=== PATIENT | male | born 1940 | race Caucasian/White ===

== ENCOUNTER 2025-03-25 14:26 | Emergency (ER) | payer MEDICARE, SELFPAY ==
--- NOTE | ~2025-03-25 | XR_ITS ---
EXAMINATION: XR shoulder RT min 2V DATE: 03/25/2025 16:37 INDICATION: Right upper arm injury post fall TECHNIQUE: AP internally and externally rotated, AP oblique externally rotated and transscapular Y views of the right shoulder were obtained. COMPARISON: None FINDINGS: Oblique fracture across the surgical neck/proximal metaphyseal region of the right humerus. There is one shaft width anteromedial displacement and 1 cm proximal migration. No other fractures identified. Mild osteoarthritis at the glenohumeral joint and moderate osteoarthritis at the acromioclavicular joint. There is suggestion of possible prior right acromioplasty and distal clavicle resection. Visualized portions of the right lung are clear. IMPRESSION: Displaced two-part fracture of the surgical neck of the proximal right humerus. Reviewed, dictated and finalized at location A. NE ACTIVIST
--- NOTE | ~2025-03-25 | CT_ITS ---
CT brain wo con HISTORY:fall COMPARISON: None. TECHNIQUE: Axial images were obtained of the head without intravenous contrast. FINDINGS: No acute intracranial hemorrhage, mass effect or midline shift. No extra-axial fluid collections. The calvarium is intact. Visualized paranasal sinuses and mastoid air cells are clear. IMPRESSION: No acute intracranial hemorrhage or extra axial fluid collections. All CT scans at this facility are performed using low dose modulation techniques as appropriate to perform exam including the following: automated exposure control; use of iterative reconstruction technique; adjustment of the mA and/or kV according to patient size (this includes techniques or standardized protocols for targeted exams where dose is matched to indication/reason for exam). Reviewed, dictated and finalized at location S. ICE SUPPORT REPRESENTATIVE IMPRESSION: No acute intracranial hemorrhage or extra axial fluid collections. All CT scans at this facility are performed using low dose modulation techniqu es as appropriate to perform exam including the following: automated exposure c ontrol; use of iterative reconstruction technique; adjustment of the mA and/or kV according to patient size (this includes techniques or standardized protocol s for targeted exams where dose is matched to indication/reason for exam).
--- NOTE | ~2025-03-25 | XR_ITS ---
XR chest 1V INDICATION:. 85 years Male fall, fracture COMPARISON: None FINDINGS: A single view of the chest demonstrates normal heart size. The lungs are clear. There is no evidence of pneumothorax or pleural effusion. IMPRESSION: No acute pulmonary findings. Reviewed, dictated and finalized at location S. D MIXER
--- NOTE | ~2025-03-25 | XR_ITS ---
EXAMINATION: XR elbow RT 2V, 03/25/2025 16:30 CARDIOLOGY COORDINATOR HISTORY: fall COMPARISON: No comparisons available. Findings: No acute fracture or malalignment. No significant degenerative changes. Soft tissues unremarkable. Impression: No acute fracture or malalignment. Reviewed, dictated and finalized at location P. IOLOGY COORDINATOR Impression: No acute fracture or malalignment.
[2025-03-25 14:47] VITALS: BP 123/52; PULSE 60; RESP 20; TEMP 36.6; O2SAT 99
--- NOTE | 2025-03-25 15:42 | PC.NURSE ---
Family to intake desk and state that pt feels like he is going to pass out. Pt to triage to be re evaluated. Skin w/d. Color pink. A & O x 4. VS rechecked and pt advised of plan of care. Washcloth given for forehead.
[2025-03-25 15:50] VITALS: BP 113/44; PULSE 50; RESP 20; O2SAT 98
--- NOTE | 2025-03-25 16:11 | ED_ITS ---
HPI - General Adult General Chief complaint: Fall <YVES Love - Last Filed: 03/25/25 16:18> Stated complaint: fall, shoulder pain <YVES Love Last Filed: 03/25/25 16:18> Time Seen by Provider: 03/25/25 21:13 <YVES Love - Last Filed: 03/25/25 16:18> Focused HPI: 85 year old male presenting with right shoulder pain after slipping on ice. Denies hitting his head. Reports right shoulder and arm pain. Reports new numbness/tingling in his right fingers. Neurovascular intact. GENERAL: No acute distress. HEAD: Normocephalic, atraumatic. CHEST: Clear to auscultation. ?No respiratory distress. HEART: Regular rate and rhythm.? NEURO: ?Alert and oriented x3. EXTREMITIES: R arm ROM limited due to pain. Neurovascular intact. Patient screened in triage and initial orders placed.? ?Additional care and disposition to be based upon?diagnostic testing and treatment. <YVES Love - Last Filed: 03/25/25 16:18> Source: patient and family <Arthur Siddiqui DO - Last Filed: 03/26/25 00:19> Mode of arrival: ambulatory <Arthur Siddiqui DO - Last Filed: 03/26/25 00:19> Limitations: no limitations <Arthur Siddiqui DO - Last Filed: 03/26/25 00:19> History of Present Illness HPI narrative: patient reports falling around 12:30 p.m. today, slipped on the ice, fell backwards arms right side, notes that his right arm took the room the low hitting his elbow is having pain in his right elbow and right shoulder. Denies hitting his head or having loss of consciousness. Denies use of blood thinners. Admits to history of rotator cuff issues in his right arm, sees a orthopedist out of [facility], Dr. Ortega. Denies any focal weakness or numbness. Notes he has been ambulatory since the event. His having some nausea and generally not feeling too well. <Arthur Siddiqui DO - Last Filed: 03/26/25 00:19> Related Data Allergies/adverse reactions: Allergies Allergy/AdvReac Type Severity Reaction Status Date / Time Penicillins Allergy Unknown Unknown Verified 03/25/25 14:50 <YVES Love - Last Filed: 03/25/25 16:18> Review of Systems 2 Review of Systems: A 10 system review of systems was completed on the patient and is negative except for what is stated in the HPI. Nursing and ancillary documentation was reviewed. <Arthur Siddiqui DO - Last Filed: 03/26/25 00:19> Exam 2 Narrative: CONST: No acute distress. Well nourished. HENMT: Head is normocephalic and atraumatic. Dry mucous membranes. No posterior oropharynx erythema. EYES: No scleral icterus. No conjunctival injection or pallor. PERRL. NECK: No meningeal signs. RESP: Able to speak in full sentences. Normal respiratory effort. CTAB. CARDIO: Regular rate. Regular rhythm. 2+ DP and radial pulses bilaterally. GI: Nondistended. No tenderness to palpation. Soft. : No CVA tenderness to palpation. SKIN: No rashes or lesions noted on exposed skin. NEURO: Oriented x3. Moves all extremities. no focal neurological deficits. EXTREM/MSK/BACK: No pedal edema. No midline vertebral tenderness palpation or palpable step-offs. Mild tenderness palpation of the right shoulder and right elbow. Patient is able to make an okay sign, flex and extend the wrist, make a fist, abduct and adduct all his fingers of the right upper extremity. Sensation intact to light touch throughout the right upper extremity. Aside from the right upper extremity findings there is no other extremity tenderness to palpation or palpable deformities. PSYCH: Normal affect. <Arthur Siddiqui DO - Last Filed: 03/26/25 00:19> Course Vital Signs Vital signs: Vital Signs Temperature 97.9 F 03/25/25 14:47 Pulse Rate 60 03/25/25 14:47 Respiratory Rate 20 03/25/25 14:47 Blood Pressure 123/52 L 03/25/25 14:47 Pulse Oximetry 99 03/25/25 14:47 Oxygen Delivery Room Air 03/25/25 14:47 Temperature 98.4 F 03/25/25 19:24 Pulse Rate 90 03/25/25 23:16 Respiratory Rate 18 03/25/25 23:16 Blood Pressure 157/71 H 03/25/25 23:16 Pulse Oximetry 98 03/25/25 23:16 Oxygen Delivery Room Air 03/25/25 14:47 <YVES Love - Last Filed: 03/25/25 16:18> Vital Signs Temperature 97.9 F 03/25/25 14:47 Pulse Rate 60 03/25/25 14:47 Respiratory Rate 20 03/25/25 14:47 Blood Pressure 123/52 L 03/25/25 14:47 Pulse Oximetry 99 03/25/25 14:47 Oxygen Delivery Room Air 03/25/25 14:47 Temperature 98.4 F 03/25/25 19:24 Pulse Rate 90 03/25/25 23:16 Respiratory Rate 18 03/25/25 23:16 Blood Pressure 157/71 H 03/25/25 23:16 Pulse Oximetry 98 03/25/25 23:16 Oxygen Delivery Room Air 03/25/25 14:47 <Arthur Siddiqui DO - Last Filed: 03/26/25 00:19> MDM MDM Narrative Medical decision making narrative: Patient presents with the above complaint. Initial vitals are remarkable for no significant abnormalities. Physical examination as noted above. Plan discussed: Laboratory analysis, EKG, right shoulder x-ray, right elbow x- ray, CT head, continues cardiac monitoring, continuous pulse oximetry, IV fluids, morphine, Zofran, sling. Spoke with Orthopedics on-call Dr. Eng who notes to have the patient follow-up with orthopedics in about 5 days, can follow up his orthopedist or them. whichever the patient prefers. Pain medications. Sling. On reassessment patient is resting comfortably appearing in no acute distress, vital signs stable, pain is well controlled. Patient has been ambulatory without difficulty. Will p.o. challenge. Patient informed of results, diagnosis, plan of care. Patient was reassessed at the bedside. No changes in physical exam. Patient is in no acute distress. Patient is tolerating oral intake. Ambulatory without issues. The patient has remained stable throughout the entire ED visit. Counseled patient regarding diagnostic results and potential diagnosis. Anticipatory guidance provided. Patient instructed to follow up with Orthopedics in 5 days. Patient counseled on: false reassurance from an emergency department evaluation; no current evidence of a medical emergency; return immediately for any new, recurrent, worsening, concerning, or refractory symptoms. Patient prescribed [place]. Prescription sent to preferred pharmacy. Medications discussed with patient. Additional verbal and printed discharge instructions were given and discussed with the patient. Patient verbally acknowledges understanding of condition and discharge instructions. All questions were answered to the patient's satisfaction. Patient is in agreement with the plan of care. The patient is stable for discharge and was discharged without incident. <Arthur Siddiqui DO - Last Filed: 03/26/25 00:19> Differential Diagnosis Differential Diagnosis: Fracture, contusion, sprain, strain, other acute traumatic injuries, metabolic derangement, electrolyte derangement. <Arthur Siddiqui DO - Last Filed: 03/26/25 00:19> Lab Data MDM Lab Attestation statement: I personally reviewed the patient's lab results. <Arthur Siddiqui DO - Last Filed: 03/26/25 00:19> Lab results narrative: CBC reveals a white blood cell count of 10.7, hemoglobin 13.3. Comprehensive metabolic panel reveals a BUN of 25. Total creatine kinase is 129. Lipase 60. Magnesium 2.1. Troponin is less than 0.012. COVID and influenza and RSV testing are negative. Urinalysis reveals 2+ protein, trace glucose, trace ketones. <Arthur Siddiqui DO - Last Filed: 03/26/25 00:19> Result diagrams: 03/25/25 21:44 03/25/25 21:44 <YVES Love - Last Filed: 03/25/25 16:18> Labs: Lab Results 03/25/25 03/25/25 03/25/25 Range/Units 15:44 19:25 21:20 WBC (4.5-10.0) K/mm3 RBC (4.6-6.20) M/mm3 Hgb (14.0-18.0) g/dL Hct (42.0-52.0) % MCV (80-100) fl MCH (26-34) pg MCHC (32-36) g/dl RDW (11.5-14.5) % Plt Count (150-375) k/mm3 MPV (7.4-10.4) fl Immature Gran % (Auto) (0-0.5) % Neut % (Auto) (45.5-73.1) % Lymph % (Auto) (18.3-44.2) % [place] % (Auto) (2.6-8.5) % Eos % (Auto) (0-4.4) % Baso % (Auto) (0.2-1.2) % Lymph # (Auto) (0.9-3.2) K/mm3 [place] # (Auto) (0.1-0.6) K/mm3 Eos # (Auto) (0-0.3) K/mm3 Baso # (Auto) (0.0-0.1) K/mm3 Abs Immat Gran (auto) (0.00-0.031) K/mm3 Absolute Neuts (auto) (1.3-6.7) K/mm3 Absolute Nucleated RBC (0.0-0.012) K/mm3 Nucleated RBC % (0.0-0.2) % Sodium Potassium Chloride Carbon Dioxide Anion Gap BUN Creatinine Estim Creat Clear Calc Estimated GFR Glucose POC Capillary Glucose 144 H 134 H 132 H (65-105) mg/dl Calcium Magnesium (1.6-2.3) mg/dL Total Bilirubin AST ALT Alkaline Phosphatase Total Creatine Kinase (55-170) U/L Troponin I (0.000-0.034) ng/mL Total Protein Albumin Lipase (23-300) U/L Urine Color (Yellow) Urine Appearance (Clear) Urine pH (5.0-9.0) Ur Specific [place] (1.001-1.035) Urine Protein (Negative) mg/dL Urine Glucose (UA) (Negative) mg/dL Urine Ketones (Negative) mg/dL Ur Blood (Man) (Negative) Urine Nitrate (Negative) Urine Bilirubin (Negative) Urine Urobilinogen (<2.0) mg/dL Leukocyte Esterase Rfl (Negative) KITA/UL Urine RBC (0-2) /hpf Urine WBC (0-3) /hpf Ur Squamous Epith Cells (Few) /hpf Urine Bacteria /hpf Urine Casts Influenza A (RT-PCR) (Negative) Influenza B (RT-PCR) (Negative) RSV (RT-PCR) (Negative) SARS-CoV-2 RNA (RT-PCR) (Negative) 03/25/25 03/25/25 03/25/25 Range/Units 21:44 21:44 21:44 WBC 10.7 H (4.5-10.0) K/mm3 RBC 4.27 L (4.6-6.20) M/mm3 Hgb 13.3 L (14.0-18.0) g/dL Hct 40.9 L (42.0-52.0) % MCV 95.8 (80-100) fl MCH 31.1 (26-34) pg MCHC 32.5 (32-36) g/dl RDW 12.8 (11.5-14.5) % Plt Count 204 (150-375) k/mm3 MPV 9.8 (7.4-10.4) fl Immature Gran % (Auto) 0.3 (0-0.5) % Neut % (Auto) 82.2 H (45.5-73.1) % Lymph % (Auto) 11.8 L (18.3-44.2) % [place] % (Auto) 5.4 (2.6-8.5) % Eos % (Auto) 0.1 (0-4.4) % Baso % (Auto) 0.2 (0.2-1.2) % Lymph # (Auto) 1.26 (0.9-3.2) K/mm3 [place] # (Auto) 0.6 (0.1-0.6) K/mm3 Eos # (Auto) 0.0 (0-0.3) K/mm3 Baso # (Auto) 0.0 (0.0-0.1) K/mm3 Abs Immat Gran (auto) 0.03 (0.00-0.031) K/mm3 Absolute Neuts (auto) 8.8 H (1.3-6.7) K/mm3 Absolute Nucleated RBC 0.000 (0.0-0.012) K/mm3 Nucleated RBC % 0.0 (0.0-0.2) % Sodium Cancelled 140 Potassium Cancelled 4.2 Chloride Cancelled Carbon Dioxide Anion Gap BUN Creatinine Estim Creat Clear Calc Estimated GFR Glucose POC Capillary Glucose (65-105) mg/dl Calcium Magnesium (1.6-2.3) mg/dL Total Bilirubin AST ALT Alkaline Phosphatase Total Creatine Kinase (55-170) U/L Troponin I (0.000-0.034) ng/mL Total Protein Albumin Lipase (23-300) U/L Urine Color (Yellow) Urine Appearance (Clear) Urine pH (5.0-9.0) Ur Specific [place] (1.001-1.035) Urine Protein (Negative) mg/dL Urine Glucose (UA) (Negative) mg/dL Urine Ketones (Negative) mg/dL Ur Blood (Man) (Negative) Urine Nitrate (Negative) Urine Bilirubin (Negative) Urine Urobilinogen (<2.0) mg/dL Leukocyte Esterase Rfl (Negative) KITA/UL Urine RBC (0-2) /hpf Urine WBC (0-3) /hpf Ur Squamous Epith Cells (Few) /hpf Urine Bacteria /hpf Urine Casts Influenza A (RT-PCR) (Negative) Influenza B (RT-PCR) (Negative) RSV (RT-PCR) (Negative) SARS-CoV-2 RNA (RT-PCR) (Negative) 03/25/25 03/25/25 03/25/25 Range/Units 21:44 21:44 21:44 WBC (4.5-10.0) K/mm3 RBC (4.6-6.20) M/mm3 Hgb (14.0-18.0) g/dL Hct (42.0-52.0) % MCV (80-100) fl MCH (26-34) pg MCHC (32-36) g/dl RDW (11.5-14.5) % Plt Count (150-375) k/mm3 MPV (7.4-10.4) fl Immature Gran % (Auto) (0-0.5) % Neut % (Auto) (45.5-73.1) % Lymph % (Auto) (18.3-44.2) % [place] % (Auto) (2.6-8.5) % Eos % (Auto) (0-4.4) % Baso % (Auto) (0.2-1.2) % Lymph # (Auto) (0.9-3.2) K/mm3 [place] # (Auto) (0.1-0.6) K/mm3 Eos # (Auto) (0-0.3) K/mm3 Baso # (Auto) (0.0-0.1) K/mm3 Abs Immat Gran (auto) (0.00-0.031) K/mm3 Absolute Neuts (auto) (1.3-6.7) K/mm3 Absolute Nucleated RBC (0.0-0.012) K/mm3 Nucleated RBC % (0.0-0.2) % Sodium Potassium Chloride 108 H Carbon Dioxide Cancelled 26 Anion Gap Cancelled 6 BUN Cancelled Creatinine Estim Creat Clear Calc Estimated GFR Glucose POC Capillary Glucose (65-105) mg/dl Calcium Magnesium (1.6-2.3) mg/dL Total Bilirubin AST ALT Alkaline Phosphatase Total Creatine Kinase (55-170) U/L Troponin I (0.000-0.034) ng/mL Total Protein Albumin Lipase (23-300) U/L Urine Color (Yellow) Urine Appearance (Clear) Urine pH (5.0-9.0) Ur Specific [place] (1.001-1.035) Urine Protein (Negative) mg/dL Urine Glucose (UA) (Negative) mg/dL Urine Ketones (Negative) mg/dL Ur Blood (Man) (Negative) Urine Nitrate (Negative) Urine Bilirubin (Negative) Urine Urobilinogen (<2.0) mg/dL Leukocyte Esterase Rfl (Negative) KITA/UL Urine RBC (0-2) /hpf Urine WBC (0-3) /hpf Ur Squamous Epith Cells (Few) /hpf Urine Bacteria /hpf Urine Casts Influenza A (RT-PCR) (Negative) Influenza B (RT-PCR) (Negative) RSV (RT-PCR) (Negative) SARS-CoV-2 RNA (RT-PCR) (Negative) 03/25/25 03/25/25 03/25/25 Range/Units 21:44 21:44 21:44 WBC (4.5-10.0) K/mm3 RBC (4.6-6.20) M/mm3 Hgb (14.0-18.0) g/dL Hct (42.0-52.0) % MCV (80-100) fl MCH (26-34) pg MCHC (32-36) g/dl RDW (11.5-14.5) % Plt Count (150-375) k/mm3 MPV (7.4-10.4) fl Immature Gran % (Auto) (0-0.5) % Neut % (Auto) (45.5-73.1) % Lymph % (Auto) (18.3-44.2) % [place] % (Auto) (2.6-8.5) % Eos % (Auto) (0-4.4) % Baso % (Auto) (0.2-1.2) % Lymph # (Auto) (0.9-3.2) K/mm3 [place] # (Auto) (0.1-0.6) K/mm3 Eos # (Auto) (0-0.3) K/mm3 Baso # (Auto) (0.0-0.1) K/mm3 Abs Immat Gran (auto) (0.00-0.031) K/mm3 Absolute Neuts (auto) (1.3-6.7) K/mm3 Absolute Nucleated RBC (0.0-0.012) K/mm3 Nucleated RBC % (0.0-0.2) % Sodium Potassium Chloride Carbon Dioxide Anion Gap BUN 25 H Creatinine Cancelled 1.25 Estim Creat Clear Calc Cancelled 39 Estimated GFR Cancelled Glucose POC Capillary Glucose (65-105) mg/dl Calcium Magnesium (1.6-2.3) mg/dL Total Bilirubin AST ALT Alkaline Phosphatase Total Creatine Kinase (55-170) U/L Troponin I (0.000-0.034) ng/mL Total Protein Albumin Lipase (23-300) U/L Urine Color (Yellow) Urine Appearance (Clear) Urine pH (5.0-9.0) Ur Specific [place] (1.001-1.035) Urine Protein (Negative) mg/dL Urine Glucose (UA) (Negative) mg/dL Urine Ketones (Negative) mg/dL Ur Blood (Man) (Negative) Urine Nitrate (Negative) Urine Bilirubin (Negative) Urine Urobilinogen (<2.0) mg/dL Leukocyte Esterase Rfl (Negative) KITA/UL Urine RBC (0-2) /hpf Urine WBC (0-3) /hpf Ur Squamous Epith Cells (Few) /hpf Urine Bacteria /hpf Urine Casts Influenza A (RT-PCR) (Negative) Influenza B (RT-PCR) (Negative) RSV (RT-PCR) (Negative) SARS-CoV-2 RNA (RT-PCR) (Negative) 03/25/25 03/25/25 03/25/25 Range/Units 21:44 21:44 21:44 WBC (4.5-10.0) K/mm3 RBC (4.6-6.20) M/mm3 Hgb (14.0-18.0) g/dL Hct (42.0-52.0) % MCV (80-100) fl MCH (26-34) pg MCHC (32-36) g/dl RDW (11.5-14.5) % Plt Count (150-375) k/mm3 MPV (7.4-10.4) fl Immature Gran % (Auto) (0-0.5) % Neut % (Auto) (45.5-73.1) % Lymph % (Auto) (18.3-44.2) % [place] % (Auto) (2.6-8.5) % Eos % (Auto) (0-4.4) % Baso % (Auto) (0.2-1.2) % Lymph # (Auto) (0.9-3.2) K/mm3 [place] # (Auto) (0.1-0.6) K/mm3 Eos # (Auto) (0-0.3) K/mm3 Baso # (Auto) (0.0-0.1) K/mm3 Abs Immat Gran (auto) (0.00-0.031) K/mm3 Absolute Neuts (auto) (1.3-6.7) K/mm3 Absolute Nucleated RBC (0.0-0.012) K/mm3 Nucleated RBC % (0.0-0.2) % Sodium Potassium Chloride Carbon Dioxide Anion Gap BUN Creatinine Estim Creat Clear Calc Estimated GFR 55 L Glucose Cancelled 142 H POC Capillary Glucose (65-105) mg/dl Calcium Cancelled 9.5 Magnesium 2.1 (1.6-2.3) mg/dL Total Bilirubin Cancelled AST ALT Alkaline Phosphatase Total Creatine Kinase (55-170) U/L Troponin I (0.000-0.034) ng/mL Total Protein Albumin Lipase (23-300) U/L Urine Color (Yellow) Urine Appearance (Clear) Urine pH (5.0-9.0) Ur Specific [place] (1.001-1.035) Urine Protein (Negative) mg/dL Urine Glucose (UA) (Negative) mg/dL Urine Ketones (Negative) mg/dL Ur Blood (Man) (Negative) Urine Nitrate (Negative) Urine Bilirubin (Negative) Urine Urobilinogen (<2.0) mg/dL Leukocyte Esterase Rfl (Negative) KITA/UL Urine RBC (0-2) /hpf Urine WBC (0-3) /hpf Ur Squamous Epith Cells (Few) /hpf Urine Bacteria /hpf Urine Casts Influenza A (RT-PCR) (Negative) Influenza B (RT-PCR) (Negative) RSV (RT-PCR) (Negative) SARS-CoV-2 RNA (RT-PCR) (Negative) 03/25/25 03/25/25 03/25/25 Range/Units 21:44 21:44 21:44 WBC (4.5-10.0) K/mm3 RBC (4.6-6.20) M/mm3 Hgb (14.0-18.0) g/dL Hct (42.0-52.0) % MCV (80-100) fl MCH (26-34) pg MCHC (32-36) g/dl RDW (11.5-14.5) % Plt Count (150-375) k/mm3 MPV (7.4-10.4) fl Immature Gran % (Auto) (0-0.5) % Neut % (Auto) (45.5-73.1) % Lymph % (Auto) (18.3-44.2) % [place] % (Auto) (2.6-8.5) % Eos % (Auto) (0-4.4) % Baso % (Auto) (0.2-1.2) % Lymph # (Auto) (0.9-3.2) K/mm3 [place] # (Auto) (0.1-0.6) K/mm3 Eos # (Auto) (0-0.3) K/mm3 Baso # (Auto) (0.0-0.1) K/mm3 Abs Immat Gran (auto) (0.00-0.031) K/mm3 Absolute Neuts (auto) (1.3-6.7) K/mm3 Absolute Nucleated RBC (0.0-0.012) K/mm3 Nucleated RBC % (0.0-0.2) % Sodium Potassium Chloride Carbon Dioxide Anion Gap BUN Creatinine Estim Creat Clear Calc Estimated GFR Glucose POC Capillary Glucose (65-105) mg/dl Calcium Magnesium (1.6-2.3) mg/dL Total Bilirubin 0.8 AST Cancelled 33 ALT Cancelled 20 Alkaline Phosphatase Cancelled Total Creatine Kinase (55-170) U/L Troponin I (0.000-0.034) ng/mL Total Protein Albumin Lipase (23-300) U/L Urine Color (Yellow) Urine Appearance (Clear) Urine pH (5.0-9.0) Ur Specific [place] (1.001-1.035) Urine Protein (Negative) mg/dL Urine Glucose (UA) (Negative) mg/dL Urine Ketones (Negative) mg/dL Ur Blood (Man) (Negative) Urine Nitrate (Negative) Urine Bilirubin (Negative) Urine Urobilinogen (<2.0) mg/dL Leukocyte Esterase Rfl (Negative) KITA/UL Urine RBC (0-2) /hpf Urine WBC (0-3) /hpf Ur Squamous Epith Cells (Few) /hpf Urine Bacteria /hpf Urine Casts Influenza A (RT-PCR) (Negative) Influenza B (RT-PCR) (Negative) RSV (RT-PCR) (Negative) SARS-CoV-2 RNA (RT-PCR) (Negative) 03/25/25 03/25/25 03/25/25 Range/Units 21:44 21:44 21:44 WBC (4.5-10.0) K/mm3 RBC (4.6-6.20) M/mm3 Hgb (14.0-18.0) g/dL Hct (42.0-52.0) % MCV (80-100) fl MCH (26-34) pg MCHC (32-36) g/dl RDW (11.5-14.5) % Plt Count (150-375) k/mm3 MPV (7.4-10.4) fl Immature Gran % (Auto) (0-0.5) % Neut % (Auto) (45.5-73.1) % Lymph % (Auto) (18.3-44.2) % [place] % (Auto) (2.6-8.5) % Eos % (Auto) (0-4.4) % Baso % (Auto) (0.2-1.2) % Lymph # (Auto) (0.9-3.2) K/mm3 [place] # (Auto) (0.1-0.6) K/mm3 Eos # (Auto) (0-0.3) K/mm3 Baso # (Auto) (0.0-0.1) K/mm3 Abs Immat Gran (auto) (0.00-0.031) K/mm3 Absolute Neuts (auto) (1.3-6.7) K/mm3 Absolute Nucleated RBC (0.0-0.012) K/mm3 Nucleated RBC % (0.0-0.2) % Sodium Potassium Chloride Carbon Dioxide Anion Gap BUN Creatinine Estim Creat Clear Calc Estimated GFR Glucose POC Capillary Glucose (65-105) mg/dl Calcium Magnesium (1.6-2.3) mg/dL Total Bilirubin AST ALT Alkaline Phosphatase 68 Total Creatine Kinase 129 (55-170) U/L Troponin I < 0.012 (0.000-0.034) ng/mL Total Protein Cancelled 7.2 Albumin Cancelled 4.3 Lipase 60 (23-300) U/L Urine Color (Yellow) Urine Appearance (Clear) Urine pH (5.0-9.0) Ur Specific [place] (1.001-1.035) Urine Protein (Negative) mg/dL Urine Glucose (UA) (Negative) mg/dL Urine Ketones (Negative) mg/dL Ur Blood (Man) (Negative) Urine Nitrate (Negative) Urine Bilirubin (Negative) Urine Urobilinogen (<2.0) mg/dL Leukocyte Esterase Rfl (Negative) KITA/UL Urine RBC (0-2) /hpf Urine WBC (0-3) /hpf Ur Squamous Epith Cells (Few) /hpf Urine Bacteria /hpf Urine Casts Influenza A (RT-PCR) Negative (Negative) Influenza B (RT-PCR) Negative (Negative) RSV (RT-PCR) Negative (Negative) SARS-CoV-2 RNA (RT-PCR) Negative (Negative) 03/25/25 Range/Units 23:42 WBC (4.5-10.0) K/mm3 RBC (4.6-6.20) M/mm3 Hgb (14.0-18.0) g/dL Hct (42.0-52.0) % MCV (80-100) fl MCH (26-34) pg MCHC (32-36) g/dl RDW (11.5-14.5) % Plt Count (150-375) k/mm3 MPV (7.4-10.4) fl Immature Gran % (Auto) (0-0.5) % Neut % (Auto) (45.5-73.1) % Lymph % (Auto) (18.3-44.2) % [place] % (Auto) (2.6-8.5) % Eos % (Auto) (0-4.4) % Baso % (Auto) (0.2-1.2) % Lymph # (Auto) (0.9-3.2) K/mm3 [place] # (Auto) (0.1-0.6) K/mm3 Eos # (Auto) (0-0.3) K/mm3 Baso # (Auto) (0.0-0.1) K/mm3 Abs Immat Gran (auto) (0.00-0.031) K/mm3 Absolute Neuts (auto) (1.3-6.7) K/mm3 Absolute Nucleated RBC (0.0-0.012) K/mm3 Nucleated RBC % (0.0-0.2) % Sodium Potassium Chloride Carbon Dioxide Anion Gap BUN Creatinine Estim Creat Clear Calc Estimated GFR Glucose POC Capillary Glucose (65-105) mg/dl Calcium Magnesium (1.6-2.3) mg/dL Total Bilirubin AST ALT Alkaline Phosphatase Total Creatine Kinase (55-170) U/L Troponin I (0.000-0.034) ng/mL Total Protein Albumin Lipase (23-300) U/L Urine Color Yellow (Yellow) Urine Appearance Clear (Clear) Urine pH 5.5 (5.0-9.0) Ur Specific [place] 1.021 (1.001-1.035) Urine Protein 2+ H (Negative) mg/dL Urine Glucose (UA) Trace H (Negative) mg/dL Urine Ketones Trace H (Negative) mg/dL Ur Blood (Man) Negative (Negative) Urine Nitrate Negative (Negative) Urine Bilirubin Negative (Negative) Urine Urobilinogen 0.2 (<2.0) mg/dL Leukocyte Esterase Rfl Negative (Negative) KITA/UL Urine RBC 0-2 (0-2) /hpf Urine WBC 0-5 (0-3) /hpf Ur Squamous Epith Cells None seen (Few) /hpf Urine Bacteria None seen /hpf Urine Casts 3-5 Influenza A (RT-PCR) (Negative) Influenza B (RT-PCR) (Negative) RSV (RT-PCR) (Negative) SARS-CoV-2 RNA (RT-PCR) (Negative) <YVES Love - Last Filed: 03/25/25 16:18> Lab Results 03/25/25 03/25/25 03/25/25 Range/Units 15:44 19:25 21:20 WBC (4.5-10.0) K/mm3 RBC (4.6-6.20) M/mm3 Hgb (14.0-18.0) g/dL Hct (42.0-52.0) % MCV (80-100) fl MCH (26-34) pg MCHC (32-36) g/dl RDW (11.5-14.5) % Plt Count (150-375) k/mm3 MPV (7.4-10.4) fl Immature Gran % (Auto) (0-0.5) % Neut % (Auto) (45.5-73.1) % Lymph % (Auto) (18.3-44.2) % [place] % (Auto) (2.6-8.5) % Eos % (Auto) (0-4.4) % Baso % (Auto) (0.2-1.2) % Lymph # (Auto) (0.9-3.2) K/mm3 [place] # (Auto) (0.1-0.6) K/mm3 Eos # (Auto) (0-0.3) K/mm3 Baso # (Auto) (0.0-0.1) K/mm3 Abs Immat Gran (auto) (0.00-0.031) K/mm3 Absolute Neuts (auto) (1.3-6.7) K/mm3 Absolute Nucleated RBC (0.0-0.012) K/mm3 Nucleated RBC % (0.0-0.2) % Sodium Potassium Chloride Carbon Dioxide Anion Gap BUN Creatinine Estim Creat Clear Calc Estimated GFR Glucose POC Capillary Glucose 144 H 134 H 132 H (65-105) mg/dl Calcium Magnesium (1.6-2.3) mg/dL Total Bilirubin AST ALT Alkaline Phosphatase Total Creatine Kinase (55-170) U/L Troponin I (0.000-0.034) ng/mL Total Protein Albumin Lipase (23-300) U/L Urine Color (Yellow) Urine Appearance (Clear) Urine pH (5.0-9.0) Ur Specific [place] (1.001-1.035) Urine Protein (Negative) mg/dL Urine Glucose (UA) (Negative) mg/dL Urine Ketones (Negative) mg/dL Ur Blood (Man) (Negative) Urine Nitrate (Negative) Urine Bilirubin (Negative) Urine Urobilinogen (<2.0) mg/dL Leukocyte Esterase Rfl (Negative) KITA/UL Urine RBC (0-2) /hpf Urine WBC (0-3) /hpf Ur Squamous Epith Cells (Few) /hpf Urine Bacteria /hpf Urine Casts Influenza A (RT-PCR) (Negative) Influenza B (RT-PCR) (Negative) RSV (RT-PCR) (Negative) SARS-CoV-2 RNA (RT-PCR) (Negative) 03/25/25 03/25/25 03/25/25 Range/Units 21:44 21:44 21:44 WBC 10.7 H (4.5-10.0) K/mm3 RBC 4.27 L (4.6-6.20) M/mm3 Hgb 13.3 L (14.0-18.0) g/dL Hct 40.9 L (42.0-52.0) % MCV 95.8 (80-100) fl MCH 31.1 (26-34) pg MCHC 32.5 (32-36) g/dl RDW 12.8 (11.5-14.5) % Plt Count 204 (150-375) k/mm3 MPV 9.8 (7.4-10.4) fl Immature Gran % (Auto) 0.3 (0-0.5) % Neut % (Auto) 82.2 H (45.5-73.1) % Lymph % (Auto) 11.8 L (18.3-44.2) % [place] % (Auto) 5.4 (2.6-8.5) % Eos % (Auto) 0.1 (0-4.4) % Baso % (Auto) 0.2 (0.2-1.2) % Lymph # (Auto) 1.26 (0.9-3.2) K/mm3 [place] # (Auto) 0.6 (0.1-0.6) K/mm3 Eos # (Auto) 0.0 (0-0.3) K/mm3 Baso # (Auto) 0.0 (0.0-0.1) K/mm3 Abs Immat Gran (auto) 0.03 (0.00-0.031) K/mm3 Absolute Neuts (auto) 8.8 H (1.3-6.7) K/mm3 Absolute Nucleated RBC 0.000 (0.0-0.012) K/mm3 Nucleated RBC % 0.0 (0.0-0.2) % Sodium Cancelled 140 Potassium Cancelled 4.2 Chloride Cancelled Carbon Dioxide Anion Gap BUN Creatinine Estim Creat Clear Calc Estimated GFR Glucose POC Capillary Glucose (65-105) mg/dl Calcium Magnesium (1.6-2.3) mg/dL Total Bilirubin AST ALT Alkaline Phosphatase Total Creatine Kinase (55-170) U/L Troponin I (0.000-0.034) ng/mL Total Protein Albumin Lipase (23-300) U/L Urine Color (Yellow) Urine Appearance (Clear) Urine pH (5.0-9.0) Ur Specific [place] (1.001-1.035) Urine Protein (Negative) mg/dL Urine Glucose (UA) (Negative) mg/dL Urine Ketones (Negative) mg/dL Ur Blood (Man) (Negative) Urine Nitrate (Negative) Urine Bilirubin (Negative) Urine Urobilinogen (<2.0) mg/dL Leukocyte Esterase Rfl (Negative) KITA/UL Urine RBC (0-2) /hpf Urine WBC (0-3) /hpf Ur Squamous Epith Cells (Few) /hpf Urine Bacteria /hpf Urine Casts Influenza A (RT-PCR) (Negative) Influenza B (RT-PCR) (Negative) RSV (RT-PCR) (Negative) SARS-CoV-2 RNA (RT-PCR) (Negative) 03/25/25 03/25/25 03/25/25 Range/Units 21:44 21:44 21:44 WBC (4.5-10.0) K/mm3 RBC (4.6-6.20) M/mm3 Hgb (14.0-18.0) g/dL Hct (42.0-52.0) % MCV (80-100) fl MCH (26-34) pg MCHC (32-36) g/dl RDW (11.5-14.5) % Plt Count (150-375) k/mm3 MPV (7.4-10.4) fl Immature Gran % (Auto) (0-0.5) % Neut % (Auto) (45.5-73.1) % Lymph % (Auto) (18.3-44.2) % [place] % (Auto) (2.6-8.5) % Eos % (Auto) (0-4.4) % Baso % (Auto) (0.2-1.2) % Lymph # (Auto) (0.9-3.2) K/mm3 [place] # (Auto) (0.1-0.6) K/mm3 Eos # (Auto) (0-0.3) K/mm3 Baso # (Auto) (0.0-0.1) K/mm3 Abs Immat Gran (auto) (0.00-0.031) K/mm3 Absolute Neuts (auto) (1.3-6.7) K/mm3 Absolute Nucleated RBC (0.0-0.012) K/mm3 Nucleated RBC % (0.0-0.2) % Sodium Potassium Chloride 108 H Carbon Dioxide Cancelled 26 Anion Gap Cancelled 6 BUN Cancelled Creatinine Estim Creat Clear Calc Estimated GFR Glucose POC Capillary Glucose (65-105) mg/dl Calcium Magnesium (1.6-2.3) mg/dL Total Bilirubin AST ALT Alkaline Phosphatase Total Creatine Kinase (55-170) U/L Troponin I (0.000-0.034) ng/mL Total Protein Albumin Lipase (23-300) U/L Urine Color (Yellow) Urine Appearance (Clear) Urine pH (5.0-9.0) Ur Specific [place] (1.001-1.035) Urine Protein (Negative) mg/dL Urine Glucose (UA) (Negative) mg/dL Urine Ketones (Negative) mg/dL Ur Blood (Man) (Negative) Urine Nitrate (Negative) Urine Bilirubin (Negative) Urine Urobilinogen (<2.0) mg/dL Leukocyte Esterase Rfl (Negative) KITA/UL Urine RBC (0-2) /hpf Urine WBC (0-3) /hpf Ur Squamous Epith Cells (Few) /hpf Urine Bacteria /hpf Urine Casts Influenza A (RT-PCR) (Negative) Influenza B (RT-PCR) (Negative) RSV (RT-PCR) (Negative) SARS-CoV-2 RNA (RT-PCR) (Negative) 03/25/25 03/25/25 03/25/25 Range/Units 21:44 21:44 21:44 WBC (4.5-10.0) K/mm3 RBC (4.6-6.20) M/mm3 Hgb (14.0-18.0) g/dL Hct (42.0-52.0) % MCV (80-100) fl MCH (26-34) pg MCHC (32-36) g/dl RDW (11.5-14.5) % Plt Count (150-375) k/mm3 MPV (7.4-10.4) fl Immature Gran % (Auto) (0-0.5) % Neut % (Auto) (45.5-73.1) % Lymph % (Auto) (18.3-44.2) % [place] % (Auto) (2.6-8.5) % Eos % (Auto) (0-4.4) % Baso % (Auto) (0.2-1.2) % Lymph # (Auto) (0.9-3.2) K/mm3 [place] # (Auto) (0.1-0.6) K/mm3 Eos # (Auto) (0-0.3) K/mm3 Baso # (Auto) (0.0-0.1) K/mm3 Abs Immat Gran (auto) (0.00-0.031) K/mm3 Absolute Neuts (auto) (1.3-6.7) K/mm3 Absolute Nucleated RBC (0.0-0.012) K/mm3 Nucleated RBC % (0.0-0.2) % Sodium Potassium Chloride Carbon Dioxide Anion Gap BUN 25 H Creatinine Cancelled 1.25 Estim Creat Clear Calc Cancelled 39 Estimated GFR Cancelled Glucose POC Capillary Glucose (65-105) mg/dl Calcium Magnesium (1.6-2.3) mg/dL Total Bilirubin AST ALT Alkaline Phosphatase Total Creatine Kinase (55-170) U/L Troponin I (0.000-0.034) ng/mL Total Protein Albumin Lipase (23-300) U/L Urine Color (Yellow) Urine Appearance (Clear) Urine pH (5.0-9.0) Ur Specific [place] (1.001-1.035) Urine Protein (Negative) mg/dL Urine Glucose (UA) (Negative) mg/dL Urine Ketones (Negative) mg/dL Ur Blood (Man) (Negative) Urine Nitrate (Negative) Urine Bilirubin (Negative) Urine Urobilinogen (<2.0) mg/dL Leukocyte Esterase Rfl (Negative) KITA/UL Urine RBC (0-2) /hpf Urine WBC (0-3) /hpf Ur Squamous Epith Cells (Few) /hpf Urine Bacteria /hpf Urine Casts Influenza A (RT-PCR) (Negative) Influenza B (RT-PCR) (Negative) RSV (RT-PCR) (Negative) SARS-CoV-2 RNA (RT-PCR) (Negative) 03/25/25 03/25/25 03/25/25 Range/Units 21:44 21:44 21:44 WBC (4.5-10.0) K/mm3 RBC (4.6-6.20) M/mm3 Hgb (14.0-18.0) g/dL Hct (42.0-52.0) % MCV (80-100) fl MCH (26-34) pg MCHC (32-36) g/dl RDW (11.5-14.5) % Plt Count (150-375) k/mm3 MPV (7.4-10.4) fl Immature Gran % (Auto) (0-0.5) % Neut % (Auto) (45.5-73.1) % Lymph % (Auto) (18.3-44.2) % [place] % (Auto) (2.6-8.5) % Eos % (Auto) (0-4.4) % Baso % (Auto) (0.2-1.2) % Lymph # (Auto) (0.9-3.2) K/mm3 [place] # (Auto) (0.1-0.6) K/mm3 Eos # (Auto) (0-0.3) K/mm3 Baso # (Auto) (0.0-0.1) K/mm3 Abs Immat Gran (auto) (0.00-0.031) K/mm3 Absolute Neuts (auto) (1.3-6.7) K/mm3 Absolute Nucleated RBC (0.0-0.012) K/mm3 Nucleated RBC % (0.0-0.2) % Sodium Potassium Chloride Carbon Dioxide Anion Gap BUN Creatinine Estim Creat Clear Calc Estimated GFR 55 L Glucose Cancelled 142 H POC Capillary Glucose (65-105) mg/dl Calcium Cancelled 9.5 Magnesium 2.1 (1.6-2.3) mg/dL Total Bilirubin Cancelled AST ALT Alkaline Phosphatase Total Creatine Kinase (55-170) U/L Troponin I (0.000-0.034) ng/mL Total Protein Albumin Lipase (23-300) U/L Urine Color (Yellow) Urine Appearance (Clear) Urine pH (5.0-9.0) Ur Specific [place] (1.001-1.035) Urine Protein (Negative) mg/dL Urine Glucose (UA) (Negative) mg/dL Urine Ketones (Negative) mg/dL Ur Blood (Man) (Negative) Urine Nitrate (Negative) Urine Bilirubin (Negative) Urine Urobilinogen (<2.0) mg/dL Leukocyte Esterase Rfl (Negative) KITA/UL Urine RBC (0-2) /hpf Urine WBC (0-3) /hpf Ur Squamous Epith Cells (Few) /hpf Urine Bacteria /hpf Urine Casts Influenza A (RT-PCR) (Negative) Influenza B (RT-PCR) (Negative) RSV (RT-PCR) (Negative) SARS-CoV-2 RNA (RT-PCR) (Negative) 03/25/25 03/25/25 03/25/25 Range/Units 21:44 21:44 21:44 WBC (4.5-10.0) K/mm3 RBC (4.6-6.20) M/mm3 Hgb (14.0-18.0) g/dL Hct (42.0-52.0) % MCV (80-100) fl MCH (26-34) pg MCHC (32-36) g/dl RDW (11.5-14.5) % Plt Count (150-375) k/mm3 MPV (7.4-10.4) fl Immature Gran % (Auto) (0-0.5) % Neut % (Auto) (45.5-73.1) % Lymph % (Auto) (18.3-44.2) % [place] % (Auto) (2.6-8.5) % Eos % (Auto) (0-4.4) % Baso % (Auto) (0.2-1.2) % Lymph # (Auto) (0.9-3.2) K/mm3 [place] # (Auto) (0.1-0.6) K/mm3 Eos # (Auto) (0-0.3) K/mm3 Baso # (Auto) (0.0-0.1) K/mm3 Abs Immat Gran (auto) (0.00-0.031) K/mm3 Absolute Neuts (auto) (1.3-6.7) K/mm3 Absolute Nucleated RBC (0.0-0.012) K/mm3 Nucleated RBC % (0.0-0.2) % Sodium Potassium Chloride Carbon Dioxide Anion Gap BUN Creatinine Estim Creat Clear Calc Estimated GFR Glucose POC Capillary Glucose (65-105) mg/dl Calcium Magnesium (1.6-2.3) mg/dL Total Bilirubin 0.8 AST Cancelled 33 ALT Cancelled 20 Alkaline Phosphatase Cancelled Total Creatine Kinase (55-170) U/L Troponin I (0.000-0.034) ng/mL Total Protein Albumin Lipase (23-300) U/L Urine Color (Yellow) Urine Appearance (Clear) Urine pH (5.0-9.0) Ur Specific [place] (1.001-1.035) Urine Protein (Negative) mg/dL Urine Glucose (UA) (Negative) mg/dL Urine Ketones (Negative) mg/dL Ur Blood (Man) (Negative) Urine Nitrate (Negative) Urine Bilirubin (Negative) Urine Urobilinogen (<2.0) mg/dL Leukocyte Esterase Rfl (Negative) KITA/UL Urine RBC (0-2) /hpf Urine WBC (0-3) /hpf Ur Squamous Epith Cells (Few) /hpf Urine Bacteria /hpf Urine Casts Influenza A (RT-PCR) (Negative) Influenza B (RT-PCR) (Negative) RSV (RT-PCR) (Negative) SARS-CoV-2 RNA (RT-PCR) (Negative) 03/25/25 03/25/25 03/25/25 Range/Units 21:44 21:44 21:44 WBC (4.5-10.0) K/mm3 RBC (4.6-6.20) M/mm3 Hgb (14.0-18.0) g/dL Hct (42.0-52.0) % MCV (80-100) fl MCH (26-34) pg MCHC (32-36) g/dl RDW (11.5-14.5) % Plt Count (150-375) k/mm3 MPV (7.4-10.4) fl Immature Gran % (Auto) (0-0.5) % Neut % (Auto) (45.5-73.1) % Lymph % (Auto) (18.3-44.2) % [place] % (Auto) (2.6-8.5) % Eos % (Auto) (0-4.4) % Baso % (Auto) (0.2-1.2) % Lymph # (Auto) (0.9-3.2) K/mm3 [place] # (Auto) (0.1-0.6) K/mm3 Eos # (Auto) (0-0.3) K/mm3 Baso # (Auto) (0.0-0.1) K/mm3 Abs Immat Gran (auto) (0.00-0.031) K/mm3 Absolute Neuts (auto) (1.3-6.7) K/mm3 Absolute Nucleated RBC (0.0-0.012) K/mm3 Nucleated RBC % (0.0-0.2) % Sodium Potassium Chloride Carbon Dioxide Anion Gap BUN Creatinine Estim Creat Clear Calc Estimated GFR Glucose POC Capillary Glucose (65-105) mg/dl Calcium Magnesium (1.6-2.3) mg/dL Total Bilirubin AST ALT Alkaline Phosphatase 68 Total Creatine Kinase 129 (55-170) U/L Troponin I < 0.012 (0.000-0.034) ng/mL Total Protein Cancelled 7.2 Albumin Cancelled 4.3 Lipase 60 (23-300) U/L Urine Color (Yellow) Urine Appearance (Clear) Urine pH (5.0-9.0) Ur Specific [place] (1.001-1.035) Urine Protein (Negative) mg/dL Urine Glucose (UA) (Negative) mg/dL Urine Ketones (Negative) mg/dL Ur Blood (Man) (Negative) Urine Nitrate (Negative) Urine Bilirubin (Negative) Urine Urobilinogen (<2.0) mg/dL Leukocyte Esterase Rfl (Negative) KITA/UL Urine RBC (0-2) /hpf Urine WBC (0-3) /hpf Ur Squamous Epith Cells (Few) /hpf Urine Bacteria /hpf Urine Casts Influenza A (RT-PCR) Negative (Negative) Influenza B (RT-PCR) Negative (Negative) RSV (RT-PCR) Negative (Negative) SARS-CoV-2 RNA (RT-PCR) Negative (Negative) 03/25/25 Range/Units 23:42 WBC (4.5-10.0) K/mm3 RBC (4.6-6.20) M/mm3 Hgb (14.0-18.0) g/dL Hct (42.0-52.0) % MCV (80-100) fl MCH (26-34) pg MCHC (32-36) g/dl RDW (11.5-14.5) % Plt Count (150-375) k/mm3 MPV (7.4-10.4) fl Immature Gran % (Auto) (0-0.5) % Neut % (Auto) (45.5-73.1) % Lymph % (Auto) (18.3-44.2) % [place] % (Auto) (2.6-8.5) % Eos % (Auto) (0-4.4) % Baso % (Auto) (0.2-1.2) % Lymph # (Auto) (0.9-3.2) K/mm3 [place] # (Auto) (0.1-0.6) K/mm3 Eos # (Auto) (0-0.3) K/mm3 Baso # (Auto) (0.0-0.1) K/mm3 Abs Immat Gran (auto) (0.00-0.031) K/mm3 Absolute Neuts (auto) (1.3-6.7) K/mm3 Absolute Nucleated RBC (0.0-0.012) K/mm3 Nucleated RBC % (0.0-0.2) % Sodium Potassium Chloride Carbon Dioxide Anion Gap BUN Creatinine Estim Creat Clear Calc Estimated GFR Glucose POC Capillary Glucose (65-105) mg/dl Calcium Magnesium (1.6-2.3) mg/dL Total Bilirubin AST ALT Alkaline Phosphatase Total Creatine Kinase (55-170) U/L Troponin I (0.000-0.034) ng/mL Total Protein Albumin Lipase (23-300) U/L Urine Color Yellow (Yellow) Urine Appearance Clear (Clear) Urine pH 5.5 (5.0-9.0) Ur Specific [place] 1.021 (1.001-1.035) Urine Protein 2+ H (Negative) mg/dL Urine Glucose (UA) Trace H (Negative) mg/dL Urine Ketones Trace H (Negative) mg/dL Ur Blood (Man) Negative (Negative) Urine Nitrate Negative (Negative) Urine Bilirubin Negative (Negative) Urine Urobilinogen 0.2 (<2.0) mg/dL Leukocyte Esterase Rfl Negative (Negative) KITA/UL Urine RBC 0-2 (0-2) /hpf Urine WBC 0-5 (0-3) /hpf Ur Squamous Epith Cells None seen (Few) /hpf Urine Bacteria None seen /hpf Urine Casts 3-5 Influenza A (RT-PCR) (Negative) Influenza B (RT-PCR) (Negative) RSV (RT-PCR) (Negative) SARS-CoV-2 RNA (RT-PCR) (Negative) <Arthur Siddiqui DO - Last Filed: 03/26/25 00:19> Imaging Data Attestation: I personally reviewed and interpreted this imaging study as follows: < Arthur Siddiqui DO - Last Filed: 03/26/25 00:19> My impression: Displaced 2 part fracture of the surgical neck of the proximal right humerus. <Arthur Siddiqui DO - Last Filed: 03/26/25 00:19> Radiologist's impression: ITS Impressions Shoulder X-Ray 03/25/25 16:42 IMPRESSION: Displaced two-part fracture of the surgical neck of the proximal right humerus. Elbow X-Ray 03/25/25 16:43 Impression: No acute fracture or malalignment. Head CT 03/25/25 21:48 IMPRESSION: No acute intracranial hemorrhage or extra axial fluid collections. All CT scans at this facility are performed using low dose modulation techniques as appropriate to perform exam including the following: automated exposure control; use of iterative reconstruction technique; adjustment of the mA and/or kV according to patient size (this includes techniques or standardized protocols for targeted exams where dose is matched to indication/reason for exam). Chest X-Ray 03/25/25 21:49 IMPRESSION: No acute pulmonary findings. <YVES Love - Last Filed: 03/25/25 16:18> ITS Impressions Shoulder X-Ray 03/25/25 16:42 IMPRESSION: Displaced two-part fracture of the surgical neck of the proximal right humerus. Elbow X-Ray 03/25/25 16:43 Impression: No acute fracture or malalignment. Head CT 03/25/25 21:48 IMPRESSION: No acute intracranial hemorrhage or extra axial fluid collections. All CT scans at this facility are performed using low dose modulation techniques as appropriate to perform exam including the following: automated exposure control; use of iterative reconstruction technique; adjustment of the mA and/or kV according to patient size (this includes techniques or standardized protocols for targeted exams where dose is matched to indication/reason for exam). Chest X-Ray 03/25/25 21:49 IMPRESSION: No acute pulmonary findings. <Arthur Siddiqui DO - Last Filed: 03/26/25 00:19> Discharge Plan Discharge Clinical Impression: Closed fracture of right proximal humerus Qualifiers: Encounter type: initial encounter Fracture morphology: unspecified fracture morphology Qualified Code(s): S42.201A - Unspecified fracture of upper end of right humerus, initial encounter for closed fracture Fall Qualifiers: Encounter type: initial encounter Qualified Code(s): W19.XXXA - Unspecified fall, initial encounter <YVES Love - Last Filed: 03/25/25 16:18> Patient Disposition: Home <YVES Love - Last Filed: 03/25/25 16:18> Condition: Stable <YVES Love - Last Filed: 03/25/25 16:18> Instructions: Antibiotic Form, Arm Fracture in Adults (ED), How to Use a Sling (ED) <YVES Love - Last Filed: 03/25/25 16:18> Additional Instructions: Follow-up with orthopedics in the next 5 days, call to schedule an appointment, good your orthopedist or the orthopedist provided to or any orthopedic doctor of your choosing. Take pain medications as needed. For the sling at all times and do gentle [id number] exercises as discussed. Return immediately to the emergency department for any new or concerning symptoms especially focal weakness, numbness, or any emergent concerns for life, limb, eyesight. <YVES Love - Last Filed: 03/25/25 16:18> Patient Language: Albanian <YVES Love - Last Filed: 03/25/25 16:18> Prescriptions: New hydrocodone-acetaminophen 5-325 mg tablet 1 tablet PO Q6H PRN (Reason: pain) 3 Days Qty: 12 0RF <YVES Love - Last Filed: 03/25/25 16:18> Follow-up/Referrals: Shahriar Galloway MD [Physician, Orthopedics] - 03/29/25 PHYSICIAN NOT ON STAFF,NONSTAFF [Non-Staff] Ortega,Geovany Ramsey M.D. [Non-Staff] - 03/29/25 <YVES Love - Last Filed: 03/25/25 16:18> Time of Disposition: 00:17 <YVES Love - Last Filed: 03/25/25 16:18> 00:17 <Arthur Siddiqui DO - Last Filed: 03/26/25 00:19>
[2025-03-25] MEDS: HYDROcodone/acetaminophen (*CRX) 5-325 MG TABLET 1 TAB PO (18:06)
[2025-03-25 19:24] VITALS: BP 139/48; PULSE 59; RESP 16; TEMP 36.9; O2SAT 97
--- NOTE | 2025-03-25 19:28 | PC.NURSE ---
pts daughter came up to desk and stated my dad is choking. pt taken pt is A+Ox4. pt spit up. vitals taken
--- NOTE | 2025-03-25 21:21 | ED.FALL ---
HPI - Fall General Chief Complaint: Fall Stated Complaint: fall, shoulder pain Time Seen by Provider: 03/25/25 21:13 Source: patient and family Mode of arrival: ambulatory Limitations: no limitations History of Present Illness HPI Narrative: Patient is an 85-year-old male presents to the emergency department Related Data Allergies Allergy/AdvReac Type Severity Reaction Status Date / Time Penicillins Allergy Unknown Unknown Verified 03/25/25 14:50 Course Vital Signs Vital signs: Vital Signs Temperature 97.9 F 03/25/25 14:47 Pulse Rate 60 03/25/25 14:47 Respiratory Rate 20 03/25/25 14:47 Blood Pressure 123/52 L 03/25/25 14:47 Pulse Oximetry 99 03/25/25 14:47 Oxygen Delivery Room Air 03/25/25 14:47 Temperature 98.4 F 03/25/25 19:24 Pulse Rate 59 L 03/25/25 19:24 Respiratory Rate 16 03/25/25 19:24 Blood Pressure 139/48 L 03/25/25 19:24 Pulse Oximetry 97 03/25/25 19:24 Oxygen Delivery Room Air 03/25/25 14:47 MDM Lab Data Labs: Lab Results 03/25/25 03/25/25 Range/Units 15:44 19:25 POC Capillary Glucose 144 H 134 H (65-105) mg/dl Imaging Data Radiologist's impression: ITS Impressions Shoulder X-Ray 03/25/25 16:42 IMPRESSION: Displaced two-part fracture of the surgical neck of the proximal right humerus. Elbow X-Ray 03/25/25 16:43 Impression: No acute fracture or malalignment. Discharge Plan Discharge Patient Language: Paraguayan Follow-up/Referrals: PHYSICIAN NOT ON STAFF,NONSTAFF [Primary Care Provider]
--- NOTE | 2025-03-25 21:22 | ECG_ITS ---
Test Date: 2025-03-25 22:03:39 Measurements Intervals Joiner Rate: 89 P: 101 FL: 262 QRS: -53 QRSD: 134 T: 60 QT: 389 QTc: 474 Interpretive Statements SINUS RHYTHM WITH FIRST DEGREE AV BLOCK LEFT AXIS DEVIATION INTRAVENTRICULAR CONDUCTION DELAY BORDERLINE R WAVE PROGRESSION, ANTERIOR LEADS BORDERLINE ST-T WAVE ABNORMALITY- HIGH LATERAL LEADS BASELINE ARTIFACT- I, II, III, AVR, AVL, AVF, V1-V6 BORDERLINE ECG No previous ECG available for comparison Electronically Signed On 03-26-2025 06:16:10 READING TEACHER by Juan Ramon Ramirez D.O.
[2025-03-25] MEDS: ONDANSETRON INJ 4 MG/2 ML VIAL IV PUSH (21:45)
[2025-03-25] MEDS: SODIUM CHLORIDE 0.9% IV 1,000 ML 999 ML IV CONT (21:45)
[2025-03-25] MEDS: MORPHINE SULFATE (*CRX) 4 MG/ML INJ 2 MG IV PUSH (21:49)
[2025-03-25 21:50] LABS: Hematocrit 40.9 % (42.0-52.0); Hemoglobin 13.3 g/dL (14.0-18.0); Immature Granulocyte Percent A 0.3 % (0-0.5); Lymphocytes Absolute Auto 1.26 K/mm3 (0.9-3.2); Mean Corpuscular HGB Conc 32.5 g/dl (32-36); Mean Corpuscular Hemoglobin 31.1 pg (26-34); Mean Corpuscular Volume 95.8 fl (80-100); Nucleated Red Blood Cells Absolute Auto 0.000 K/mm3 (0.0-0.012); Nucleated Red Blood Cells Perc 0.0 % (0.0-0.2); Platelet Count Result 204 k/mm3 (150-375); Red Blood Count 4.27 M/mm3 (4.6-6.20); White Blood Count 10.7 K/mm3 (4.5-10.0)
[2025-03-25 22:00] VITALS: BP 164/75; PULSE 86; RESP 14; O2SAT 98
[2025-03-25 22:03] LABS: Creatine Kinase 129 U/L (55-170)
[2025-03-25 22:05] LABS: Alanine Aminotransferase 20 U/L (6-50); Albumin Level 4.3 g/dL (3.5-5.1); Alkaline Phosphatase 68 U/L (38-126); Anion Gap 6 mmol/L (4-12); Aspartate Amino Transferase 33 U/L (17-59); Bilirubin,Total 0.8 mg/dL (0.2-1.3); Blood Urea Nitrogen 25 mg/dL (9-20); Calcium 9.5 mg/dL (8.4-10.2); Carbon Dioxide 26 mmol/L (22-30); Chloride 108 mmol/L (98-107); Estimated CRCL calculation 39 ml/min; Estimated Glomerular Filt Rate 55; Glucose 142 mg/dL (65-110); Lipase 60 U/L (23-300); Magnesium 2.1 mg/dL (1.6-2.3); Potassium 4.2 mmol/L (3.4-5.0); Sodium 140 mmol/L (137-145); Total Protein 7.2 g/dL (6.3-8.2)
[2025-03-25 22:16] LABS: Troponin I < 0.012 ng/mL (0.000-0.034)
[2025-03-25] MEDS: MORPHINE SULFATE (*CRX) 4 MG/ML INJ IV PUSH (22:17)
[2025-03-25 22:26] LABS: Influenza A QL RT-PCR Negative (Negative); Influenza B QL RT-PCR Negative (Negative); RSV RNA, RT-PCR Negative (Negative); SARS-CoV-2 RNA PCR Negative (Negative)
--- OUTSIDE RECORDS SUMMARY | 2025-03-25 22:47 | XMS_ITS | Clinical Summary ---
Author Organization [facility] Address [address] [place] [address] Care Team Providers Care Sparker And Patcher Name Role Phone Unknown, Notinfile Primary Care Provider Unavail able Allergies Active Allergy Reactions Criticality Noted Date Comments Codeine Other (See comments),Nausea only,Vomiting Reaction: Nausea, vomiting, , Reaction: Nausea, Vomiting, Penicillins Other (See comments),Anaphylaxis Reaction: Anaphylaxis, , Reaction: Anaphylaxis, Medications dorzolamide-abril olol (COSOPT) 22.3-6.8 mg/mL ophthalmic solution [The details of the medication are not available because there are pending changes by a home health clinician.] 0 0 4 Active Additional Information Patient taking differently: 1 drop each eye 2 times daily, Indications: open angle glaucoma, Reported on 06/08/2019 latanoprost (XALATAN) 0.005 % ophthalmic solution [The details of the medication are not available because there are pending changes by a home health clinician.] 0 0 4 Active Additional Information Patient taking differently: 0.005 % each eye Daily, Indications: open angle glaucoma, Reported on 06/08/2019 omeprazole OTC (PriLOSEC OTC) 20 mg EC tablet [The details of the medication are not available because there are pending changes by a home health clinician.] 0 0 6 Active Additional Information Patient taking differently:20 mgoral Daily, Indications: Stress Ulcer Prophylaxis, Reported on 06/08/2019 amlodipine-emily zepril (LOTREL 5-20) 5-20 mg per capsuleIndicati ons:hypertensio n Take 1 capsule by mouth daily Active atenolol (TENORMIN) 25 mg tabletIndicatio ns:hypertension Take 25 mg by mouth daily Active glucosamine sulfate (Glucosamine) 500 mg tablet Take 2,000 mg by mouth daily Active aspirin 81 mg chewable tabletIndicatio ns:Deep Vein Thrombosis Prevention Take 1 tablet (81 mg total) by mouth 2 (two) times a day 60 tablet 11 0 Active Additional Information Patient not taking.Reported on 12/11/2019 docusate sodium (COLACE) 100 mg capsuleIndicati ons:constipatio n Take 1 capsule (100 mg total) by mouth 2 (two) times a day 0 Active HYDROcodone-lexi taminophen (NORCO) 5-325 mg per tabletIndicatio ns:Pain Take 1 tablet by mouth every 6 (six) hours as needed (:. Primary pain medication, use 1-2 tablets every 6 hours as needed for pain, do not take within 4-6 hours of Tylenol/Acetamin ophen) 0 0 Active Additional Information Patient not taking.Reported on 12/11/2019 oxyCODONE (ROXICODONE) 5 mg immediate release tabletIndicatio ns:Pain Take 1 tablet (5 mg total) by mouth every 6 (six) hours as needed (Use 1 tablets every 6 hours for breakthrough pain. Second line for pain, Mcfaddin is first line pain medication. If needed, ok to take in addition to/stagger with Mcfaddin so pain medication is available every 3 hours) 30 tablet 0 Active Additional Information Patient not taking.Reported on 12/11/2019 hydrOXYzine (VISTARIL) 25 mg capsule Take 1 capsule (25 mg total) by mouth every 6 (six) hours as needed for itching (Use as needed for nausea, vomiting, itching or as pain adjunct) 0 Active Additional Information Patient not taking.Reported on 12/11/2019 naproxen (NAPROSYN) 500 mg tablet naproxen 500 mg tablet Active Active Problems Problem Noted Date Diagnosed Date Osteoarthritis of right knee 06/04/2019 Nephrolithiasis Malignant neoplasm of urinary bladder Hypertension GERD (gastroesophageal reflux disease) Glaucoma Anesthesia Overview (05/08/2019): Denies any personal or family hx of anesthesia complications Surgical History Surgery Date Site/Laterality Comments TRANSURETHRAL RESECTION OF BLADDER 04/25/2010 - 04/24/2011 TOTAL KNEE ARTHROPLASTY 04/25/2015 - 04/24/2016 Left TOE SURGERY Right joint replacement ROTATOR CUFF REPAIR 04/25/2014 - 04/24/2015 Right INGUINAL HERNIA REPAIR FINGER SURGERY 04/25/1998 - 04/24/1999 Right excision cyst 3rd digit CATARACT EXTRACTION Bilateral LITHOTRIPSY UPPER GASTROINTESTINAL ENDOSCOPY 04/25/2013 - 04/24/2014 COLONOSCOPY 04/25/2015 - 04/24/2016 APPENDECTOMY Medical History Medical History Date Comments Glaucoma Malignant neoplasm of urinar y bladder (HCC) Hypertension GERD (gastroesophageal reflux disease) Anesthesia Denies any perso nal or family hx of anesthesia complications Nephrolithiasis Hiatal hernia BPH (benign prostatic hyperplasia) Urinary frequency Family History Medical History Relation Name Comments Breast cancer Daughter Cataracts Father Prostate cancer Father mets to bone s. age 69 Cataracts Mother Lung cancer Mother age 78 Other Other 1 No family histo ry of Cancer, colon; Other Other 2 No family histo ry of Celiac disease; Other Other 3 No family histo ry of Colon polyps; Other Other 4 No family histo ry of Crohn's disease; Other Other 5 No family histo ry of Ulcerative colitis; HIV Son from AIDs age 34 Diabetes Neg Hx Glaucoma Neg Hx Macular degeneration Neg Hx Retinal detachment Neg Hx Thyroid disease Neg Hx Relation Name Status Comments Daughter Alive Father Mother Other 1 Other 2 Other 3 Other 4 Other 5 Son Social History Tobacco Use Types Packs/Day Years Used Date Smoking Tobacco: Former Cigarettes 1 5 1 7 - 1962 Smokeless Tobacco: Never Alcohol Use Standard Drinks/Week Comments No 0 (1 standard drink = 0.6 oz pur e alcohol) Sex and Gender Information Value Date Recorded Sex Assigned at Not on file Legal Sex Male 12:13 AM [employer] Gender Identity Not on file Sexual Orientation Not on file Last Filed Vital Signs Vital Sign Reading Time Taken Comments Blood Pressure 160/80 06/18/2019 4:37 PM [employer] Pulse 72 06/18/2019 4:37 PM [employer] Temperature 36.6 C (97.8 F) 06/18/2019 4:37 PM [employer] Respiratory Rate 16 06/18/2019 4:37 PM [employer] Oxygen Saturation 98% 06/18/2019 4:37 PM [employer] Inhaled Oxygen Concentration - - Weight 81.6 kg (180 lb) 06/07/2019 10:13 AM [employer] Height 175.3 cm (5' 9) 06/07/2019 10:13 AM [employer] Body Mass Index 26.58 06/07/2019 10:13 AM [employer] Plan of Treatment Health Maintenance Due Date Last Done Comments Depression Screening 1940 Fall Risk Assessment 1940 DTaP/Tdap/Td Vaccine (1 - Tdap) 1950 Hepatitis B Screening 1957 Zoster Vaccine (1 of 2) 1989 Well Visit 65+ 01/07/2004 Pneumococcal vaccine 65+ (2 of 2 - PCV20 or PCV21) 02/15/2019 02/15/2018 Influenza Vaccine (#1) 2024 4, 12/22/2022, 01/12/2021, Additional history exists Medical Devices Implanted Type Area Administration Physician Device Identifier Shelf Expiration Date Model / Serial / Lot [employer] 6191-1-010 Simplex P Radiopaque Full Dose Cement Bone Sterile - [id number] Implanted:Qty: 1 on 06/04/2019 by Geovany Ortega MD at [facility] Right: Knee [employer] 04/24/2021 6191-1-01 0 / / [id number] [employer] 6191-1-010 Simplex P Radiopaque Full Dose Cement Bone Sterile - [id number] Implanted:Qty: 1 on 06/04/2019 by Geovany Ortega MD at [facility] Right: Knee [employer] 04/24/2021 6191-1-01 0 / / [id number] [employer] [id number] Insert Tibial Triathlon 5 H9 Mm Knee Bearing Cruciate Retain Sterile - [id number] Implanted:Qty: 1 on 06/04/2019 by Geovany Ortega MD at [facility] Right: Knee [employer] [id number] 11/23/2023 5530-G-[id number] 9-E / / [id number] [employer] [id number] Triathlon Cruciate Retaining Cemented Knee Right 5 Component - [id number] Implanted:Qty: 1 on 06/04/2019 by Geovany Ortega MD at [facility] Right: Knee [employer] [id number] 01/17/2023 [id number] / / [id number] [employer] 5521-[id number]-500 Triathlon Knee 5 [place] Baseplate Tibial Cocr - [id number] Implanted:Qty: 1 on 06/04/2019 by Geovany Ortega MD at [facility] Right: Knee [employer] [id number] 02/08/2024 5521-B-50 0 / / [id number] Insurance MEDICARE [facility] MEDICARE [facility] MEDICARE [facility] MEDICARE [facility] Advance Directives For more information, please contact: [phone] Documents on File Type Date Recorded Patient Diesel Engine Assembler Expl anation ADVANCE DIRECTIVE 06/04/2019 10:58 AM ADVANCE DIRECTIVE 06/04/2019 10:51 AM * Full Code (Latest Code Status on File) Date Activated Date Inactivated Comments 06/04/2019 6:03 PM 06/05/2019 10:40 PM Care Teams [employer] Patcher Relationship Specialty Start Date End Date Unknown, Notinfile PCP - General 07/06/21
[2025-03-25 23:16] VITALS: BP 157/71; PULSE 90; RESP 18; O2SAT 98
[2025-03-25 23:55] LABS: Add Urine Microscopic? YES; Appearance Urine Clear (Clear); Glucose Urine UA Trace mg/dL (Negative); Leukocyte Esterase Ur Negative LEU/UL (Negative); Nitrate Urine Negative (Negative); Specific Grav Ur 1.021 (1.001-1.035)
[2025-03-26 00:39] VITALS: BP 163/69; PULSE 81; RESP 17; O2SAT 99
[2025-03-26 00:41] VITALS: BP 163/69; PULSE 81; RESP 17; O2SAT 99
== END 2025-03-26 00:46 | disposition home or self-care (01) ==
PROVIDERS: Emergency Provider Student in an Organized Health Care Education/Training Program
DX: S42.201A Unspecified fracture of upper end of right humerus, initial encounter for closed fracture (principal); W00.0XXA Fall on same level due to ice and snow, initial encounter; Z20.822 Contact with and (suspected) exposure to COVID-19
CPT/HCPCS: 36415; 70450; 71045; 73030; 73070; 80053; 81001; 82550; 82948; 83690; 83735; 84484; 85025; 87637; 93005; 96361; 96374; 96375; 96376; 99284; A4565; A9270; J2270; J2405; J7030